=== PATIENT | female | born 1985 | race Caucasian/White ===

== ENCOUNTER 2024-08-02 07:02 | Day surgery (SDC) | payer OTHER ==
[2024-07-31 10:51] VITALS: BMI 25.8
[2024-08-02] MEDS ORDERED: CEFAZOLIN 2 GM in DEXTROSE 5%-WATER - 100 ML IVPB ONE (07:20)
[2024-08-02] MEDS ORDERED: FENTANYL CITRATE/PF 50 MCG/ML VIAL ONE (08:35)
[2024-08-02] MEDS ORDERED: BUPIVACAINE LIPOSOME/PF (EXPAREL) 266 MG/20 ML VIAL ONE (08:35)
[2024-08-02] MEDS ORDERED: MIDAZOLAM HCL 2 MG/2 ML SINGLE DOSE VIAL ONE (08:35)
[2024-08-02] MEDS ORDERED: BUPIVACAINE HCL/PF 0.5% (5MG/ML) 10 ML VIAL ONE (08:36)
[2024-08-02] MEDS ORDERED: VANCOMYCIN 1,000 MG VIAL (RESTRICTED TO ID ONLY) ONE (08:38)
[2024-08-02] MEDS ORDERED: BUPIVACAINE HCL/EPINEPHRINE/PF 30 ML VIAL IJ ONE (08:38)
[2024-08-02] MEDS ORDERED: PROPOFOL 40 ML ONE (09:09)
[2024-08-02] MEDS ORDERED: SUCCINYLCHOLINE CHLORIDE 200 MG/10 ML SYRINGE ONE (09:10)
[2024-08-02] MEDS ORDERED: ONDANSETRON 4 MG/2 ML VIAL ONE (09:15)
[2024-08-02] MEDS ORDERED: ceFAZolin SODIUM 1 GM VIAL ONE (09:15)
[2024-08-02] MEDS ORDERED: DEXAMETHASONE SOD PHOSPHATE 4 MG/1 ML VIAL ONE (09:15)
[2024-08-02] MEDS ORDERED: TRANEXAMIC ACID 1000 MG/10 ML VIAL ONE (09:15)
[2024-08-02] MEDS ORDERED: HYDROmorphone HCL/PF 1 MG/ML VIAL ONE (09:38)
[2024-08-02] MEDS ORDERED: EPINEPHrine 1:1,000 1,000 MCG/ML ML ONE (09:55)
[2024-08-02] MEDS: FENTANYL CITRATE/PF 50 MCG/ML VIAL ONE ×2 (11:44→12:06)
[2024-08-02] MEDS: ACETAMINOPHEN 1000 MG/100 ML BAG IVPB ONE (11:46)
[2024-08-02] MEDS ORDERED: oxyCODONE HCL 5 MG TABLET ONE (13:12)
[2024-08-02] MEDS ORDERED: ONDANSETRON 4 MG/2 ML VIAL IVPUSH PRN (13:23)
[2024-08-02] MEDS ORDERED: oxyCODONE HCL 5 MG TABLET PO PRN (13:23)
[2024-08-02] MEDS ORDERED: LACTATED RINGERS SOLUTION 1,000 ML IV SCH (13:30)
[2024-08-02 13:32] VITALS: TEMP 98
[2024-08-02 14:18] VITALS: BP 108/66; PULSE 86; RESP 18
== END 2024-08-02 14:00 | disposition home or self-care (01) ==
LOC: FASU 07:02
PROVIDERS: ATTEND Orthopaedic Surgery
PROC: 0MSN4ZZ Reposition Right Knee Bursa and Ligament, Percutaneous Endoscopic Approach (ICD-10-PCS; principal; 2024-08-02 09:45)
DX: S83.511A Sprain of anterior cruciate ligament of right knee, initial encounter (principal); X58.XXXA Exposure to other specified factors, initial encounter; Y93.9 Activity, unspecified; Y92.9 Unspecified place or not applicable
CPT/HCPCS: 29888; C1713; 81025; 94760; 97116-GP; J0666